=== PATIENT | male | born 1975 | race Caucasian/White ===

== ENCOUNTER 2023-07-19 16:03 | Emergency (ER) | payer OTHER, SELFPAY ==
[2023-07-19] VITALS (8 sets, daily range): BP systolic 106–131; BP diastolic 56–87; PULSE 48–130; RESP 18; TEMP 36.4; O2SAT 97–100
--- NOTE | 2023-07-19 17:28 | ED.GENADULT ---
HPI - General Adult General Chief complaint: Unspecified Stated complaint: detox from fentanyl Time Seen by Provider: 07/19/23 16:59 Source: patient Mode of arrival: ambulatory Limitations: no limitations History of Present Illness HPI narrative: This is a 47-year-old male who is a chronic fentanyl user and presenting today for fentanyl withdrawal. Patient states that he was arrested a couple of days ago and has not had any of his fentanyl since. He reports he was released yesterday but today started feeling increasingly nauseous. Reports several episodes of vomiting today with bilious emesis. Reports feeling generally unwell. Denies chest pain, shortness of breath, LOC, problems with bowel movements, abdominal pain. Related Data Allergies Allergy/AdvReac Type Severity Reaction Status Date / Time clindamycin Allergy Swelling Verified 07/19/23 16:06 sulfamethoxazole Allergy Anaphylaxis Verified 07/19/23 16:06 [From Bactrim] trimethoprim [From Bactrim] Allergy Anaphylaxis Verified 07/19/23 16:06 Review of Systems Review of Systems: All systems as dictated in HPI Exam Narrative: GENERAL: Sleeping when I enter the room. HEAD: Normocephalic, atraumatic. EYES: PERRLA and EOMI. ENT: Nares clear, no rhinorrhea or epistaxis. Mucous membranes moist. Oropharynx without tonsillar hypertrophy exudate or other lesions. NECK: Supple. No adenopathy or masses. CHEST: No respiratory distress. Clear to auscultation. No wheezes rales or rhonchi HEART: Regular rate and rhythm. No murmur heard. Normal peripheral pulses. ABDOMEN: Soft, nontender, nondistended, normal active bowel sounds. MSK: Normal range of motion. No edema. SKIN: Track arnold diffusely throughout his arms. Warm, dry, no rash. NEURO: Alert and oriented x3. No focal deficits. PSYCH: Normal mood and affect. Course Vital Signs Vital signs: Vital Signs Temperature 97.6 F 07/19/23 16:17 Pulse Rate 130 H 07/19/23 16:17 Respiratory Rate 18 07/19/23 16:17 Blood Pressure 117/74 07/19/23 16:17 Pulse Oximetry 97 07/19/23 16:17 Oxygen Delivery Room Air 07/19/23 16:17 Temperature 97.6 F 07/19/23 16:17 Pulse Rate 60 07/19/23 17:22 Respiratory Rate 18 07/19/23 16:17 Blood Pressure 106/56 L 07/19/23 18:01 Pulse Oximetry 98 07/19/23 18:09 Oxygen Delivery Room Air 07/19/23 16:17 Medical Decision Making MDM Narrative Medical decision making narrative: This is a 47-year-old male who presents to the ED for chief complaint of opioid withdrawal. Vitals show initial tachycardia 130 but otherwise stable. His exam is benign. He had symptomatic improvement with fluids and Zofran. Shortly after having his medications administered he wanted to go home. Originally had ordered basic labs but these were canceled. He is stable to go home. Vital signs have normalized. He expresses that he will continue to use fentanyl at home. He tells me that he has Narcan. Pt will be discharged in stable condition. Return precautions given and supportive measures discussed. Pt is understanding and agreeable with plan for discharge and follow-up with PCP. Vital Signs Vital Signs: Vital Signs Temperature 97.6 F 07/19/23 16:17 Pulse Rate 130 H 07/19/23 16:17 Respiratory Rate 18 07/19/23 16:17 Blood Pressure 117/74 07/19/23 16:17 Pulse Oximetry 97 07/19/23 16:17 Oxygen Delivery Room Air 07/19/23 16:17 Temperature 97.6 F 07/19/23 16:17 Pulse Rate 60 07/19/23 17:22 Respiratory Rate 18 07/19/23 16:17 Blood Pressure 106/56 L 07/19/23 18:01 Pulse Oximetry 98 07/19/23 18:09 Oxygen Delivery Room Air 07/19/23 16:17 Discharge Plan Discharge Clinical Impression: Opioid abuse with withdrawal Patient Disposition: Home, Self-Care Condition: Stable Instructions: Antibiotic Form, Opioid Withdrawal (ED) Additional Instructions: You were seen for opioid withdrawals and had improvement here i
[2023-07-19] MEDS: SODIUM CHLORIDE 0.9% IV 1,000 ML 999 ML IV CONT (17:48)
[2023-07-19] MEDS: ONDANSETRON INJ 4 MG/2 ML VIAL IV PUSH (17:49)
--- NOTE | 2023-07-19 18:21 | PC.NURSE ---
Pt IV removed at discharge. Pt encouraged to remain clean from street drugs which could result in . Pt stated he had no interest in remaining drug free. Offered to phone family for pt, pt declined. Resources offered for assistance with recovery pt declined. Pt stated he did not need discharge instructions. Pt belongings returned. Pt ambulated to ER exit.
--- NOTE | 2023-07-25 09:45 | PC.NURSE ---
Pt's NSS was stopped at 1817 with a 1000mls administered to pt.
== END 2023-07-19 18:21 | disposition home or self-care (01) ==
PROVIDERS: Emergency Provider Physician Assistant
DX: F11.13 Opioid abuse with withdrawal (principal)
CPT/HCPCS: 96361; 96374; 99284; J2405; J7030